=== PATIENT | female | born 1940 | race Caucasian/White ===

== ENCOUNTER → 2022-11-12 | Outpatient (CLI) | payer OTHER | END | disposition home or self-care (01) | LOC: RESCLI 14:07 | PROVIDERS: ATTEND Internal Medicine | DX: K21.9 Gastro-esophageal reflux disease without esophagitis (principal); I48.91 Unspecified atrial fibrillation; E11.9 Type 2 diabetes mellitus without complications; E03.9 Hypothyroidism, unspecified; G30.9 Alzheimer's disease, unspecified; I50.9 Heart failure, unspecified; H81.10 Benign paroxysmal vertigo, unspecified ear; Z98.890 Other specified postprocedural states; Z79.899 Other long term (current) drug therapy ==